=== PATIENT | female | born 1980 | race Caucasian/White ===

== ENCOUNTER 2023-12-09 23:02 | Emergency (ER) | payer OTHER, MEDICAID ==
[~2023-12-09] VITALS: Ht 152.4 cm; Wt 86.2 kg
[2023-12-09 23:02] VITALS: BP 146/96; PULSE 102; RESP 17; TEMP 98; O2SAT 98
[2023-12-09 23:05] VITALS: BP 146/96; PULSE 102; RESP 17; TEMP 98; O2SAT 98
[2023-12-10] MEDS: HYDROcodone/APAP 5/325 MG 1 TAB TAB PO ONE (00:13)
[2023-12-10] MEDS: KETOROLAC 30 MG/ML VIAL IM ONE (01:08)
[2023-12-10] MEDS ORDERED: TRAM-748 PO (01:11)
[2023-12-10] MEDS: ONDANSETRON 4 MG ODT PO ONE (01:11)
[2023-12-10] MEDS ORDERED: CYCL-711 PO (01:42)
== END 2023-12-10 02:09 | disposition home or self-care (01) ==
LOC: MED 23:02
DX: S93.491A Sprain of other ligament of right ankle, initial encounter (principal); S39.012A Strain of muscle, fascia and tendon of lower back, initial encounter; S16.1XXA Strain of muscle, fascia and tendon at neck level, initial encounter; M25.511 Pain in right shoulder; M25.512 Pain in left shoulder; Z79.899 Other long term (current) drug therapy; V49.88XA Car occupant (driver) (passenger) injured in other specified transport accidents, initial encounter; Y93.89 Activity, other specified; Y92.89 Other specified places as the place of occurrence of the external cause; Y99.8 Other external cause status
CPT/HCPCS: 29515; 73610; 96372; 99283; J1885; Q0162